=== PATIENT | female | born 1955 | race Caucasian/White ===

== ENCOUNTER → 2017-01-24 17:21 | Outpatient (CLI) | payer MEDICARE ==
[2016-04-18 18:15] VITALS: BMI 32.3
[~2017-01-24 17:21] MED LIST: CLIMARA 0.0.1 MG/PAT TRANSDERM; LEXAPRO20 MG PO; LYRICA75 MG PO; OMEPRAZOLE20 M1 PO; SINGULAIR10 MG PO
== END | disposition home or self-care (01) ==
LOC: D.MAMMO 01-20 13:00
DX: Z12.31 Encounter for screening mammogram for malignant neoplasm of breast (principal)

== ENCOUNTER → 2017-02-23 16:29 | Outpatient (CLI) | payer MEDICARE ==
[2016-04-18 18:15] VITALS: BMI 32.3
== END | disposition home or self-care (01) ==
LOC: D.MAMMO 14:30
DX: R92.8 Other abnormal and inconclusive findings on diagnostic imaging of breast (principal)

== ENCOUNTER 2018-10-05 07:55 | Outpatient (CLI) | payer MEDICARE ==
[2016-04-18 18:15] VITALS: BMI 32.3
== END 2018-10-05 23:59 | disposition home or self-care (01) ==
LOC: D.MAMMO 07:55
DX: Z12.31 Encounter for screening mammogram for malignant neoplasm of breast (principal)

== ENCOUNTER → 2019-12-28 10:00 | Outpatient (CLI) | payer MEDICARE, BC ==
[2016-04-18 18:15] VITALS: BMI 32.3
== END | disposition home or self-care (01) ==
LOC: D.MAMMO 10:00
PROVIDERS: ATTEND Emergency Medicine
DX: Z12.31 Encounter for screening mammogram for malignant neoplasm of breast (principal)

== ENCOUNTER → 2021-03-24 13:06 | Outpatient (CLI) | payer MEDICARE, BC ==
[2016-04-18 18:15] VITALS: BMI 32.3
== END | disposition home or self-care (01) ==
LOC: D.MRI 13:00
PROVIDERS: ATTEND Emergency Medicine
DX: M54.12 Radiculopathy, cervical region (principal); M54.6 Pain in thoracic spine